=== PATIENT | male | born 1965 | race Caucasian/White ===

== ENCOUNTER 2021-11-07 21:18 | Emergency (ER) | payer OTHER, SELFPAY ==
[2021-11-07 21:27] VITALS: BP 117/79; PULSE 85; RESP 18; TEMP 36.7; O2SAT 98
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
[2021-11-07] MEDS: Doxycycline Hyclate 100 MG CAP 200 MG PO (23:00)
--- NOTE | 2021-11-07 23:30 | RT.EKG_ITS ---
APPROVED REPORT Exam: Resting ECG Reason for Exam: Chest Pain Patient Location: E HR:68 bpm ECG Measurements Heart Rate 68 AXIS MI 136 P 45 QRSd 113 QRS -6 QT 421 T 14 QTc 448 Conclusion Sinus rhythm...normal P axis, V-rate 60- 99 Inferior infarct, old...Q >35mS, II III aVF
[2021-11-07] MEDS: Emtricitabine/Tenofovir 200 mg/300 mg TAB 1 EACH PO ×2 (23:38→23:39)
[2021-11-07] MEDS: metroNIDAZOLE 500 MG TAB 2000 MG PO (23:39)
[2021-11-07] MEDS: Raltegravir Potassium 400 MG TAB PO (23:39)
[2021-11-07] MEDS: Lidocaine 1% Multi-Dose 50 ML VIAL (23:58)
[2021-11-07] MEDS: cefTRIAXone 500 MG VIAL IM (23:58)
[2021-11-08 00:26] VITALS: BP 120/72; PULSE 88; RESP 18; O2SAT 98
[2021-11-08 00:45] LABS: Abs Immature Grans 0.02 10^3/uL (0.0-0.06); Absolute Basophil Count 0.06 10^3/uL (0.0-0.2); Absolute Eosinophil Count 0.13 10^3/uL (0.0-0.7); Absolute Lymphocyte Count 2.21 10^3/uL (1.2-3.4); Absolute Monocyte Count 1.22 10^3/uL (0.1-0.8); Basophils % 0.6; Eosinophils % 1.4; HCT 39.9 % (40.0-50.0); HGB 13.6 g/dL (13.5-17.5); Immature Grans % 0.2; Lymphocytes % 23.2; MCH 32.2 pg (27.0-33.0); MCHC 34.1 % (32.0-36.0); MCV 94.3 fL (80-95); MPV 9.6 fL (8.0-11.0); Monocytes % 12.8; Neutrophils % 61.8; Nucleated RBC 0 %; Platelet Count 267 10^3/uL (130-400); RBC 4.23 10^6/uL (4.36-5.78); RDW 12.7 % (11.8-14.1); RDW-SD 43.8 fL; WBC 9.54 10^3/uL (4.4-10.8)
[2021-11-08 01:04] LABS: ALT 67 U/L (16-63); AST 30 U/L (15-37); Alkaline Phosphatase 119 U/L (46-116); Anion Gap 10.1 mmol/L (3-11); BUN 13 mg/dL (7-18); Bilirubin, Total 0.5 mg/dL (0.2-1.0); CO2 25.9 mmol/L (21.0-32.0); CREATININE 1.4 mg/dL (0.70-1.30); Calcium 9.1 mg/dL (8.5-10.1); Chloride 101 mmol/L (98-107); Estimated GFR 52.24 (mL/min/1.73m2); Glucose 97 mg/dL (74-106); Potassium 3.9 mmol/L (3.5-5.1); Sodium 137 mmol/L (136-145); Total Protein 7.5 g/dL (6.4-8.2)
[2021-11-10 09:26] LABS: Hepatitis B Surface Ag Negative (Negative)
[2021-11-10 10:00] LABS: Hepatitis A Antibody IgM Negative (Negative); Hepatitis B Core Antibody Negative (Negative); Hepatitis B surface Ag Negative (Negative); Hepatitis C Ab w Rflx HCV PCR Negative (Negative)
[2021-11-11 11:53] LABS: Syphilis Serology (RPR) Negative (Negative)
== END 2021-11-08 00:52 | disposition home or self-care (01) ==
PROVIDERS: Emergency Provider Registered Nurse Emergency
DX: T76.21XA Adult sexual abuse, suspected, initial encounter (principal); S39.81XA Other specified injuries of abdomen, initial encounter; K92.1 Melena; R07.9 Chest pain, unspecified
CPT/HCPCS: 36415; 80053; 86704; 86709; 86803; 87340; 93005; 96372; 99284; 85025; 86592; 93010; J0696